=== PATIENT | male | born 1990 | race African-American/Black ===

== ENCOUNTER 2018-05-23 22:28 | Emergency (ER) | payer SELFPAY ==
[2018-05-23] MEDS ORDERED: Erythromycin OPTH OINT* APPLIC OINT LEFT EYE SCH (23:45)
[2018-05-23] MEDS ORDERED: cefTRIAXone VIAL(*) 250 MG VIAL IM ONE (23:50)
[2018-05-23] MEDS ORDERED: Azithromycin TAB* 250 MG PO ONE (23:51)
--- NOTE | 2018-05-23 23:55 | ED ---
Skin Complaint - HPI Summary HPI Summary: This patient is a 28 year old M presenting to [facility] with a chief complaint of a cyst on his right heel since 3 weeks ago. Patient reports left eye irritation, eye discharge and erythema, and burning with urination. Patient denies pain, difficulty ambulating, fever, or penile discharge. He also stated that he has had sex with two female partners without protection over the last two weeks and requests an STD test. He asks for the test because of the burning with urination. No one else at home is sick, but he was recently exposed to someone with pink eye. - History of Current Complaint Chief Complaint: EDExtremityLower Time Seen by Provider: 05/23/18 23:44 Stated Complaint: LEFT EYE IRRATATION/RIGHT FOOT HEEL INJURY Hx Obtained From: Patient Onset/Duration: Started Weeks Ago - 3 Timing: Constant Pain Intensity: 0 Skin Location: Foot - right - Allergy/Home Medications Allergies/Adverse Reactions: Allergies Allergy/AdvReac Type Severity Reaction Status Date / Time No Known Allergies Allergy Verified 05/23/18 22:35 PMH/Surg Hx/FS Hx/Imm Hx History: Denies: Hx Dialysis Sensory History: Denies: Hx Deafness Infectious Disease History: No Infectious Disease History: Denies: Traveled Outside the [place] in Last 30 Days - Family History Known Family History: Positive: Non-Contributory - Social History Lives: With Family Review of Systems Negative: Fever Positive: Drainage, Erythema Positive: burning. Negative: discharge Negative: Decreased ROM Positive: Rash - right foot All Other Systems Reviewed And Are Negative: Yes Physical Exam - Summary Physical Exam Summary: Appearance: Well-appearing, Well-nourished, lying in bed comfortable Skin: Warm, dry, no obvious rash Eyes: sclera anicteric, no conjunctival pallor ENT: mucous membranes moist. Left eye is injected with slight purulent drainage Neck: deferred Respiratory: No signs of respiratory distress Cardiovascular: Appears well perfused, pulses are nml Abdomen: deferred Musculoskeletal: Moving all 4 extremities without obvious discomfort Neurological: Awake and alert, mentation is normal, speech is fluent and appropriate Psychiatric: affect is normal, does not appear anxious or depressed Triage Information Reviewed: Yes Vital Signs On Initial Exam: Initial Vitals Temp Pulse Resp BP Pulse Ox 98.6 F 58 16 126/60 100 05/23/18 22:30 05/23/18 22:30 05/23/18 22:30 05/23/18 22:30 05/23/18 22:30 Vital Signs Reviewed: Yes Diagnostics - Vital Signs Vital Signs Temp Pulse Resp BP Pulse Ox 05/23/18 22:30 98.6 F 58 16 126/60 100 - Laboratory Lab Statement: Any lab studies that have been ordered have been reviewed, and results considered in the medical decision making process. Course/Dx - Course Course Of Treatment: This patient is a 28 year old M presenting to [facility] with a chief complaint of a cyst on his right heel since 3 weeks ago. Patient reports left eye irritation, eye discharge and erythema, and burning with urination. Patient denies pain, difficulty ambulating, fever, or penile discharge. In the ED course the patient was given Azithromycin, Ceftriaxone, and Erythromycin. Patient will be discharged with follow up from Dr. Lundberg and the [facility]. The patient is agreeable with this plan. - Diagnoses Provider Diagnoses: Sebaceous cyst, Conjunctivitis, Urethritis Discharge - Sign-Out/Discharge Documenting (check all that apply): Patient Departure - discharge - Discharge Plan Condition: Good Disposition: HOME Patient Education Materials: Sexually Transmitted Diseases (ED), Cyst (ED), Conjunctivitis (ED) Referrals: [facility] [Outside] - If Needed Frank Lundberg MD [Medical Doctor] - No Primary Care Phys,NOPCP [Primary Care Provider] - - Billing Disposition and Condition Condition: GOOD Disposition: Home - Attestation Statements Document Initiated by Monik: Yes Documenting Scribe: Karthik Quinn Provider For Whom Monik is Documenting (Include Credential): Ric Ruiz MD Scribe Attestation: Karthik Cruz scribed for Ric Ruiz MD on 05/24/18 at 0447. Scribe Documentation Reviewed: Yes Provider Attestation: The documentation as recorded by the Karthik hutchison accurately reflects the service I personally performed and the decisions made by me, Ric Ruiz MD Status of Scribe Document: Viewed
[2018-05-24 01:07] VITALS: BP 115/64
== END 2018-05-24 01:05 | disposition home or self-care (01) ==
LOC: ED 22:28
DX: L72.3 Sebaceous cyst (principal); H10.9 Unspecified conjunctivitis; N34.2 Other urethritis; R21 Rash and other nonspecific skin eruption
CPT/HCPCS: 96372; 99282; A9270-GY; J0696